=== PATIENT | male | born 1985 | race Hispanic/Latino ===

== ENCOUNTER 2021-03-04 11:28 | Emergency (ER) | payer SELFPAY ==
[2021-03-04 11:31] VITALS: BP 144/91; PULSE 82; RESP 14; TEMP 37; O2SAT 100
--- NOTE | 2021-03-04 12:09 | ED.DENTAL ---
HPI - Dental/Oral General Chief complaint: Dental/Oral Stated complaint: infected tooth Time Seen by Provider: 03/04/21 11:48 Source: patient Mode of arrival: ambulatory Limitations: no limitations History of Present Illness HPI Narrative: 35-year-old with no major medical problems here with complaints of dental pain for last few days. He states he is visiting from [place] and does not have a dentist around this area. He denies any fever but had some chills earlier this morning. No history of nausea or vomiting. MD Complaint: tooth pain Location: Tooth # (#20) Onset (ago): week(s) (1) Duration: constant Severity: moderate Relieving factors: nothing Exacerbating factors: nothing Context: history of dental caries Associated symptoms: gum swelling Treatment prior to arrival: none Related Data Allergies Allergy/AdvReac Type Severity Reaction Status Date / Time No Known Allergies Allergy Verified 03/04/21 11:30 Review of Systems Review of Systems: All systems reviewed & are unremarkable except as noted in HPI and below Constitutional: Constitutional: Reports no additional constitutional complaints Eyes: Eyes: Reports no additional eye complaints ENT: Reports as per HPI Cardiovascular: Cardiovascular: Reports no additional cardiovascular complaints Respiratory: Respiratory: Reports no additional respiratory complaints Gastrointestinal: Gastrointestinal: Reports no additional gastrointestinal complaints Musculoskeletal: Musculoskeletal: Reports no additional musculoskeletal complaints Integumentary/Breasts: Skin/Breast: Reports system reviewed and no additional complaints, except as docu Exam Narrative: GENERAL: Well-appearing, well-nourished, and in no acute distress. HEAD: Normocephalic, atraumatic. EYES: PERRLA and EOMI. ENT: Nares clear, no rhinorrhea or epistaxis. Mucous membranes moist.Dental pain #20 NECK: Supple. CHEST: Clear to auscultation. No respiratory distress. HEART: Regular rate and rhythm. No murmur heard. Normal peripheral pulses. EXTREMITIES: Normal range of motion. No edema. SKIN: Warm, dry, no rash. NEURO: No focal deficits. Alert and oriented x3. PSYCH: Normal mood and affect. Course Vital Signs Vital signs: Vital Signs Temperature 37.0 C 03/04/21 11:31 Pulse Rate 82 03/04/21 11:31 Respiratory Rate 14 03/04/21 11:31 Blood Pressure 144/91 H 03/04/21 11:31 Pulse Oximetry 100 03/04/21 11:31 Temperature 37.0 C 03/04/21 11:31 Pulse Rate 82 03/04/21 11:31 Respiratory Rate 14 03/04/21 11:31 Blood Pressure 144/91 H 03/04/21 11:31 Pulse Oximetry 100 03/04/21 11:31 MDM - Dental/Oral Differential Diagnosis Differential diagnosis: Likely gingival abscess, dental caries and toothache Discharge Plan Discharge Clinical Impression: Toothache Patient Disposition: Home, Self-Care Condition: Stable Instructions: Antibiotic Form, Toothache (ED) Additional Instructions: follow with a dentist , take antibiotic as prescribed. Prescriptions: New amoxicillin 875 mg tablet 875 mg PO Q12H Qty: 20 RF: 0 ibuprofen 600 mg tablet 600 mg PO TID PRN (Reason: pain) Qty: 30 RF: 0 Follow-up/Referrals: Jace Felipe MD [Physician] - PHYSICIAN,[employer] [Primary Care Provider] - Stand Alone Forms: Work/School Release IP Time of Disposition: 12:14
== END 2021-03-04 12:23 | disposition home or self-care (01) ==
PROVIDERS: Emergency Provider Family Medicine
DX: K08.89 Other specified disorders of teeth and supporting structures (principal)
CPT/HCPCS: 99283

== ENCOUNTER 2022-09-08 10:27 | Emergency (ER) | payer BC, SELFPAY ==
--- NOTE | ~2022-09-08 | CT_ITS ---
EXAMINATION: CT abdomen pelvis w con DATE: 09/08/2022 11:31 INDICATION: Lower abdominal pain TECHNIQUE: Computed tomography (CT) of the abdomen and pelvis was performed with 100 mL Omnipaque-350 intravenous contrast. Automated exposure control and iterative reconstruction technique were employe d. The dose-length product was 322.20 mGy-cm. COMPARISON: None FINDINGS: Lung bases are clear. Heart size is normal. No pericardial or pleural effusion. Focal hepatic steatos is along the ligamentum teres. Gallbladder, spleen, pancreas, bilateral adrenal glands and right kidn ey are normal. 2 mm nonobstructing stone at a lower pole of the left kidney. Bladder is normal. Bowel s including the appendix are normal. Mild lumbar spondylosis with posterior disc ossified complexes r esult in mild to moderate central canal stenosis at L4-L5. IMPRESSION: 1. No acute intra-abdominal/pelvic process. 2. 2 mm nonobstructing left renal stone. Reviewed, dictated and finalized at location L.
[2022-09-08 10:28] VITALS: BP 181/122; PULSE 89; RESP 27; O2SAT 99
--- NOTE | 2022-09-08 10:28 | ED.ABDPAIN ---
HPI - Abdominal Pain General Chief Complaint: Abdominal Pain Stated Complaint: abd pain History of Present Illness HPI narrative: 36-year-old male no medical problems presents to the emergency room for evaluation of sudden onset of lower abdominal pain. Patient states the pain radiates into his testicles. Denies any vomiting or diarrhea. Patient states that he has chronic abdominal pain, but this is worse. Denies any injury or trauma. Denies any associated back pain or fevers. Related Data Allergies Allergy/AdvReac Type Severity Reaction Status Date / Time No Known Allergies Allergy Verified 09/08/22 10:31 Review of Systems Review of Systems: CONSTITUTIONAL: Denies fever, chills, or sweats. EYES: Denies visual changes, redness, or discharge. ENT: Denies rhinorrhea, congestion, sore throat, or otalgia. CARDIOVASCULAR: Denies chest pain, palpitations, or edema. RESPIRATORY: Denies cough or dyspnea. GASTROINTESTINAL: Reports abdominal pain and nausea GENITOURINARY: Denies dysuria or hematuria. SKIN: Denies rash or itching. MUSCULOSKELETAL: Denies back pain, joint pain, or myalgia. NEUROLOGIC: Denies headache, numbness, dizziness, or weakness. PSYCHIATRIC: Denies anxiety or depression. Exam Narrative: GENERAL: Well-appearing, well-nourished, no physical limitations, and in obvious acute distress. HEAD: Normocephalic, atraumatic. EYES: Conjunctivae normal, PERRLA and EOMI. CHEST: Clear to auscultation. No respiratory distress. No wheezes rales or rhonchi. HEART: Regular rate and rhythm. No murmur heard. Normal peripheral pulses. ABDOMEN: Soft, lower abdominal tenderness, nondistended, normal active bowel sounds. BACK: No CVA tenderness EXTREMITIES: Normal range of motion. No edema. No clubbing or cyanosis SKIN: Warm, dry, no rash. No noted wounds NEURO: No focal deficits. Alert and oriented x3. MAEW. CN's II-XI intact bilaterally, normal gait PSYCH: Cooperative. Tearful. Course Vital Signs Vital signs: Vital Signs Pulse Rate 89 09/08/22 10:28 Respiratory Rate 27 H 09/08/22 10:28 Blood Pressure 181/122 H 09/08/22 10:28 Pulse Oximetry 99 09/08/22 10:28 Oxygen Delivery Room Air 09/08/22 10:28 Pulse Rate 89 07/06/23 10:28 Respiratory Rate 27 H 09/08/22 10:28 Blood Pressure 181/122 H 09/08/22 10:28 Pulse Oximetry 99 09/08/22 10:28 Oxygen Delivery Room Air 09/08/22 10:28 MDM - Abdominal Pain MDM Narrative Medical decision making narrative: 36-year-old male presented to the emergency room with sudden onset of left lower abdominal pain. CT scan demonstrated a 2 mm stone in the distal ureter. Lab work was largely unremarkable. Patient responded well to fluids and analgesics. Will discharge patient home with anti-inflammatories and Flomax urology follow-up as needed. Discharge Plan Discharge Clinical Impression: Kidney stone Patient Disposition: Home, Self-Care Condition: Stable Instructions: Antibiotic Form, Kidney Stones (ED) Prescriptions: New tamsulosin [Flomax] 0.4 mg capsule 0.4 mg PO DAILY Qty: 10 0RF No Action amoxicillin 875 mg tablet 875 mg PO Q12H Qty: 20 0RF ibuprofen 600 mg tablet 600 mg PO TID PRN (Reason: pain) Qty: 30 0RF Follow-up/Referrals: Alexis Shanks APRN [Emergency Provider] - Kt Felder MD [Physician] - Time of Disposition: 11:56
[2022-09-08] MEDS: SODIUM CHLORIDE 0.9% IV 1,000 ML 999 ML IV CONT (10:34)
[2022-09-08] MEDS: MORPHINE SULFATE (*CRX) 4 MG/ML INJ IV PUSH (10:35)
[2022-09-08] MEDS: ONDANSETRON INJ 4 MG/2 ML VIAL IV PUSH (10:35)
[2022-09-08 10:59] LABS: Basophils Percent Auto 0.3 % (0.2-1.2); Eosinophils Percent Auto 0.2 % (0-4.4); Hematocrit 40.2 % (42.0-52.0); Hemoglobin 14.3 g/dL (14.0-18.0); Immature Granulocyte Absolute 0.02 K/mm3 (0.00-0.031); Immature Granulocyte Percent A 0.3 % (0-0.5); Lymphocytes Percent Auto 11.5 % (18.3-44.2); Mean Corpuscular HGB Conc 35.6 g/dl (32-36); Mean Corpuscular Hemoglobin 33.2 pg (26-34); Mean Corpuscular Volume 93.3 fl (80-100); Mean Platelet Volume 9.3 fl (7.4-10.4); Monocytes Absolute Auto 0.6 K/mm3 (0.1-0.6); Monocytes Percent Auto 9.8 % (2.6-8.5); Neutrophils Absolute Auto 4.8 K/mm3 (1.3-6.7); Neutrophils Percent Auto 77.9 % (45.5-73.1); Platelet Count Result 195 k/mm3 (150-375); Red Blood Count 4.31 M/mm3 (4.6-6.20); Red Cell Distribution Width 12.5 % (11.5-14.5); White Blood Count 6.1 K/mm3 (4.5-10.0)
[2022-09-08] MEDS: DICYCLOMINE HCL INJ 20 MG/2 ML VIAL IM (10:59)
[2022-09-08 11:09] LABS: Alanine Aminotransferase 62 U/L (6-50); Albumin Level 4.6 g/dL (3.5-5.1); Alkaline Phosphatase 55 U/L (38-126); Anion Gap 14 mmol/L (8-16); Aspartate Amino Transferase 107 U/L (17-59); Bilirubin,Total 1.8 mg/dL (0.2-1.3); Blood Urea Nitrogen 6 mg/dL (9-20); Carbon Dioxide 19 mmol/L (22-30); Chloride 102 mmol/L (98-107); Estimated CRCL calculation 162 ml/min; Estimated Glomerular Filt Rate > 60; Glucose 119 mg/dL (65-110); Lipase 224 U/L (23-300); Potassium 3.3 mmol/L (3.4-5.0); Sodium 135 mmol/L (137-145)
[2022-09-08 11:48] LABS: Appearance Urine Clear (Clear); Bacteria Urine None Seen /hpf; Bilirubin Urine Negative (Negative); Blood Urine Negative (Negative); Color Urine Yellow (Yellow); Glucose Urine UA Trace mg/dL (Negative); Ketones Urine 1+ mg/dL (Negative); Leukocyte Esterase Ur Negative LEU/UL (Negative); Nitrate Urine Negative (Negative); Non Pathogenic Casts 0-2; Protein Urine 1+ mg/dL (Negative); RBC Urine 0-2 /hpf (0-2); Specific Grav Ur 1.013 (1.001-1.035); Squamous Epithelial Cell Urine None seen /hpf (Few); Urobilinogen Urine 0.2 mg/dL (<2.0); WBC Urine 0-5 /hpf; pH Urine 6.5 (5.0-9.0)
[2022-09-08 11:54] LABS: Add Urine Microscopic? YES
[2022-09-08] MEDS: KETOROLAC 30 MG/ML VIAL (*BKC) IV PUSH (11:54)
[2022-09-08 12:00] VITALS: PULSE 69; RESP 15; O2SAT 99
[2022-09-08 12:15] VITALS: PULSE 80; RESP 20; O2SAT 98
[2022-09-08 12:16] VITALS: BP 135/92; PULSE 88; RESP 20; O2SAT 98
== END 2022-09-08 12:30 | disposition home or self-care (01) ==
PROVIDERS: Emergency Provider Nurse Practitioner Family
DX: N20.0 Calculus of kidney (principal)
CPT/HCPCS: 36415; 74177; 80053; 81001; 83690; 85025; 96361; 96372; 96374; 96375; 99284; J0500; J1885; J2270; J2405; J7030; Q9967